=== PATIENT | male | born 1955 | race Caucasian/White ===

== ENCOUNTER → 2023-06-01 09:55 | Outpatient (REF) | payer OTHER, SELFPAY | LOC: HWRCS 09:55 | PROVIDERS: ATTENDING PHYSICIAN Nurse Practitioner Family | DX: R06.09 Other forms of dyspnea (principal) | CPT/HCPCS: 93306 ==

== ENCOUNTER → 2023-10-22 18:32 | Outpatient (REF) | payer OTHER, SELFPAY | LOC: PAVMRI 18:32 | PROVIDERS: ATTENDING PHYSICIAN Physical Medicine & Rehabilitation; FAMILY PHYSICIAN Nurse Practitioner Family | DX: M54.16 Radiculopathy, lumbar region (principal) | CPT/HCPCS: 72148 ==

== ENCOUNTER → 2024-06-09 07:50 | Outpatient (REF) | payer OTHER, SELFPAY | LOC: HWRCS 07:50 | PROVIDERS: ATTENDING PHYSICIAN Nurse Practitioner Family | DX: R06.09 Other forms of dyspnea (principal) | CPT/HCPCS: 78452; 93017; A9500; J2785 ==

== ENCOUNTER → 2024-07-29 14:35 | Outpatient (REF) | payer OTHER, SELFPAY | LOC: HWRAD 14:35 | PROVIDERS: ATTENDING PHYSICIAN Internal Medicine; FAMILY PHYSICIAN Nurse Practitioner Family | DX: R06.09 Other forms of dyspnea (principal) | CPT/HCPCS: 71046 ==

== ENCOUNTER 2024-10-21 11:19 | Emergency (ER) | payer OTHER, SELFPAY ==
[2024-10-21 11:27] VITALS: BP 111/77
[2024-10-21 12:58] LABS: % Basophils 0.5 % (0-2); % Eosinophils 1.7 % (0-6); % Immature Granulocytes 0.2 % (0-0.5); % Lymphocytes 23.2 % (20.5-51.1); % Monocytes 10.2 % (1.7-9.3); % Neutrophils 64.2 % (42.2-75.2); Absolute Eosinophils 0.1 10^3/uL (0-0.7); Absolute Lymphocytes 1.9 10^3/uL (1.2-3.4); Absolute Monocytes 0.9 10^3/uL (0.1-0.6); Absolute Neutrophils 5.4 10^3/uL (1.4-6.5); Hemoglobin 13.4 g/dL (13.0-18.0); Mean Corp Hgb Conc. 34.4 g/dL (33.0-37.0); Mean Corpuscular Hgb 30.7 pg (27.0-31.0); Mean Corpuscular Volume 89.4 fL (80.0-94.0); Mean Platelet Volume 9.4 fL (7.4-10.4); Nucleated Red Blood Cells % 0 % (-); Platelet Count 229 10^3/uL (130-400); Red Blood Cell Count 4.36 10^6/uL (4.70-6.10); White Blood Cell Count 8.4 10^3/uL (4.8-10.8)
[2024-10-21] MEDS: PROTONIX IV 80 MG IV (13:08)
[2024-10-21 13:16] LABS: ALT (SGPT) 24 U/L (0-50); AST (SGOT) 26 U/L (17-59); Albumin 4.3 g/dl (3.5-5.0); Alkaline Phosphatase 83 U/L (38-126); Blood Urea Nitrogen 18 mg/dl (9-20); Calcium 9.6 mg/dl (8.4-10.2); Carbon Dioxide 25 mmol/L (22-30); Chloride 109 mmol/L (98-107); Glucose 87 mg/dl (70-99); Potassium 4.4 mmol/L (3.5-5.1); Sodium 140 mmol/L (135-145); Total Bilirubin 1.1 mg/dl (0.2-1.3); Total Protein 7.1 g/dl (6.3-8.2); eGFR > 60.00
[2024-10-21 13:26] LABS: Troponin I < 0.012 ng/ml
--- NOTE | 2024-10-21 13:44 | ED.GENMED ---
History of Present Illness
General
Chief Complaint: Chest Pain
Source: patient
Exam Limitations: none
Time Seen by Provider: 10/21/24 12:49
Nursing documentation reviewed up to this point in time: agreed with
History of Present Illness
History of Present Illness:
The patient is a 69-year-old male who presents with chest tightness associated with exertion for the past couple of months. He reports that the chest tightness does not manifest at rest, but he experiences shortness of breath with mild exertion. He
mentions recent symptoms of belching and burning, particularly after consuming baked goods. The patient reports no significant past chest pain episodes. Vital signs and labs, including troponin, are pending. He has had recent complete cardiac w/u
including an echocardiogram and nuclear stress test with unremarkable results. Denies n/v/d/c. at bedside states symptoms have been worsening past week.
Past History
Past History
ED Past Medical History: None; Negative HTN, Hypercholesterolemia or NIDDM
ED Past Surgical History: Orthopedic
Social History
Tobacco: Non-smoker
Alcohol: Occasional
Personal:
Living: with family
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
Family History
Family History: Other (many family members with GERD, sister had esophageal ring stretched)
Review of Systems
Review of Systems
Allergies reviewed?: Yes
All Other Systems: ROS reviewed and negative except as documented in HPI and ROS
Constitutional: Denies fever or fatigue
Respiratory: Reports other ( - Respiratory: Shortness of breath with mild exertion.)
Cardiac: Reports other (Chest tightness with exertion. No history of recent travel or blood clots. )
ABD/GI: Reports other (belching, burning sensation after consuming certain foods, and history of constipation managed with magnesium and daily fluids. -)
Musculoskeletal: Reports no symptoms
Skin: Reports no symptoms
Neurological: Reports no symptoms
Phy Exam
Physical Exam
Physical Exam:
GENERAL: No acute distress. A&Ox3.
CONSTITUTIONAL: Afebrile.
EYES: clear, conjunctivae normal
ENMT: moist mucus membranes, Pharynx nl
RESPIRATORY: Regular respirations, nonlabored, lungs clear.
CARDIOVASCULAR: Regular rate and rhythm, no murmurs, no rubs.
GI: Soft, nontender, normal BS
MUSCULOSKELETAL: Moves with ease. Well perfused.
SKIN: Warm, dry, pink
PSYCH: Normal mood and affect. Well kept, interactive and appropriate
NEUROLOGIC: Awake, alert and oriented. No focal neurological deficits
Scores
Heart Score for Chest Pain Patients
STEMI patient?: Not applicable
Course
Orders/Labs/Results
Orders:
Orders
10/21/24 11:20
Electrocardiogram (*1) Urgent
Reason for Study: Chest Pain
EKG- Treatment ONCE
10/21/24 12:52
Complete Blood Count/With Diff Urgent
Comprehensive Metabolic Panel Urgent
Troponin I Urgent
10/21/24 12:59
Pantoprazole [Protonix IV] 80 mg IV NOW STA
Abnormal Lab Results
10/21/24
12:52
RBC 4.36 L 10^6/uL
(4.70-6.10)
Absolute Monos (auto) 0.9 H 10^3/uL
(0.1-0.6)
Monocytes % 10.2 H %
(1.7-9.3)
Chloride 109 H mmol/L
(98-107)
10/21/24 12:52
10/21/24 12:52
Vital Signs
Initial and Last Documented VS:
Initial Vital Signs
Temp Pulse Resp BP Pulse Ox
97.7 F 65 20 111/77 99
10/21/24 11:27 10/21/24 11:27 10/21/24 11:27 10/21/24 11:27 10/21/24 11:27
Last Documented Vital Signs
Temp Pulse Resp BP Pulse Ox
97.7 F 57 13 134/84 99
10/21/24 11:27 10/21/24 13:45 10/21/24 13:30 10/21/24 14:04 10/21/24 13:45
MDM/Problems Addressed
Differential Diagnosis Includes:
The Differential Diagnosis includes, in no particular order and is not limited to:
1. Gastroesophageal reflux disease (GERD)
2. Atypical angina
3. Esophageal spasm
4. Myocardial ischemia
MDM/Problems Addressed:
The patient is a 69-year-old male who presents with chest tightness associated with exertion for the past couple of months. He reports that the chest tightness does not manifest at rest, but he experiences shortness of breath with mild exertion. He
mentions recent symptoms of belching and burning, suggestive of gastroesophageal reflux, particularly after consuming baked goods. The patient reports no significant past chest pain episodes. Vital signs and labs, including troponin, are pending. He
has had recent complete cardiac w/u including an echocardiogram and nuclear stress test with unremarkable results. Denies n/v/d/c. at bedside states symptoms have been worsening past week.
EKG sinus bradycardia heart rate 55
No risk factors for PE, no tachycardia, hypoxia
1:30 PM:
CBC unremarkable
CMP unremarkable
Troponin normal
No indication of cardiac etiology of symptoms
Plan:
- Initiate intravenous pantoprazole to manage GERD symptoms, followed by oral administration.
- Referral to a cable engineer outside plant for potential endoscopy.
- Continue home management strategies for constipation with magnesium and fluids, stool softener.
*Pulse Oximetry
SaO2: 99
Oxygen Mode of Delivery: Room air
Patient hypoxic: no
*EKG
Interpreted by ED Provider?: Yes
EKG Intrepretation Date: 10/21/24
Interpretation: abnormal
Heart Rate: 55
Rate: bradycardiac
Rhythm: sinus
[place]: normal axis
Interval: normal interval
QRS Pattern: normal QRS
Ischemia: no ischemia
*Critical Care Note
Total Time (30-74mins, 75-104mins- exclusive of procedures): Not Applicable
ED Attending Note
-
Portions of this chart may have been created with voice recognition software.� Occasional wrong word or��sound alike� substitutions may have occurred due to the inherent limitations of voice recognition software.
Discharge Plan
Departure
Patient Disposition: Home (Routine Discharge)
Date of Disposition: 10/21/24
Time of Disposition: 13:45
Patient with high blood pressure during this ER visit?: No
Condition: Good
Discharge Problem:
Atypical chest pain, Chest pain due to GERD
Instructions: Chest Pain That Is Not Caused by the Heart (DC), Acid Reflux and GERD in Adults (DC)
Prescriptions:
New
pantoprazole [Protonix] 40 mg tablet,delayed release (DR/EC)
40 mg PO DAILY Qty: 30 0RF
No Action
fluoxetine 10 MG capsule
10 mg PO DAILY
meloxicam [Mobic] 15 MG tablet
15 mg PO DAILY
acetaminophen [Tylenol Extra Strength] 500 MG tablet
1,000 mg PO Q6HPRN PRN (Reason: pain)
gabapentin 300 MG capsule
600 mg PO TID
oxycodone 5 MG tablet
5 - 10 mg PO Q6HPRN PRN (Reason: pain)
Referrals:
Kenneth Salamanca CRNP [Family Provider, Family Practice]
Lindsay Carter MD [Active, Gastroenterology] - Next open appointment
Activity Restrictions/Additional Instructions:
As we discussed, your workup here today shows nothing worrisome.
I sent a prescription to your pharmacy for Protonix to start tomorrow as you were given a dose here today
Call make an appointment with the GI doctor
Interventions
Interventions:
*Risk Screen - Suicide Last Done: 10/21/24 11:27
*General Assessment Last Done: 10/21/24 11:27
*Neglect/Abuse Screening Last Done: 10/21/24 11:27
*ED COVID-19 Vaccine History Last Done: 10/21/24 11:27
*Nursing Disposition Last Done: 10/21/24 14:10
ED- Cardiac Assessment Last Done: 10/21/24 13:24
Discharge Date and Time
Discharge Date/Time: 10/21/24 14:10
Print Language: BAHAMIAN
[2024-10-21 14:04] VITALS: BP 134/84
== END 2024-10-21 14:10 | disposition home or self-care (01) ==
LOC: EMR 11:19
PROVIDERS: Registered Nurse; EMERGENCY PHYSICIAN Emergency Medicine; FAMILY PHYSICIAN Nurse Practitioner Family
DX: R07.89 Other chest pain (principal); R06.02 Shortness of breath; K21.9 Gastro-esophageal reflux disease without esophagitis; G62.9 Polyneuropathy, unspecified; M48.00 Spinal stenosis, site unspecified; E78.5 Hyperlipidemia, unspecified; K58.9 Irritable bowel syndrome, unspecified; F32.A Depression, unspecified; Z88.8 Allergy status to other drugs, medicaments and biological substances
CPT/HCPCS: 99284; 96374; 80053; 84484; 85025; 93005